=== PATIENT | female | born 1980 ===

== ENCOUNTER 2017-10-10 22:24 | Inpatient (IN) | payer BC ==
[2017-10-11] MEDS ORDERED: ACETAMINOPHEN 325 MG TAB PO
[2017-10-11] MEDS ORDERED: DOCUSATE SODIUM 100 MG CAP PO
[2017-10-11] MEDS ORDERED: BISACODYL (EC) 5 MG TAB PO
[2017-10-11] MEDS: NACL 0.9% 3 ML SYG IV (00:40)
[2017-10-11] MEDS: SOD CHLORIDE 0.9% 1,000 ML IV ×2 (00:43→12:49)
[2017-10-11] MEDS: KETOROLAC 15 MG INJ IV ×2 (00:44→06:23)
[2017-10-11 01:17] LABS: PROTIME 13.3 Sec (11.9-14.9)
[2017-10-11 01:18] LABS: PARTIAL THROMBOPLASTIN TIME 29.2 Sec (25.0-35.0)
[2017-10-11 02:02] LABS: THYROID STIMULATING HORMONE 0.361 MIU/L (0.465-4.680)
[2017-10-11 02:20] LABS: HEMOGLOBIN A1C 5.3 % (0-5.9)
[2017-10-11 05:12] LABS: ADD MAN DIFF? NO
[2017-10-11 05:20] LABS: WHITE BLOOD COUNT 6.4 10^3/ul (4.8-10.8)
[2017-10-11 05:20] LABS: BASOPHIL # 0.1 10^3/ul (0.0-0.1); BASOPHILS % 0.9 % (0.0-2.0); EOSINOPHILS # 0.2 10^3/ul (0.0-0.5); EOSINOPHILS % 2.4 % (0.0-7.0); HEMATOCRIT 36.8 % (37.0-47.0); HEMOGLOBIN 12.3 g/dl (12.0-16.0); LYMPHOCYTES # 2.8 10^3/ul (0.8-2.9); LYMPHOCYTES % 44.3 % (15.0-51.0); MEAN CORPUSCULAR HEMOGLOBIN 30.3 pg (29.0-33.0); MEAN CORPUSCULAR HGB CONC 33.4 g/dl (32.0-37.0); MEAN CORPUSCULAR VOLUME 90.6 fl (82.0-101.0); MEAN PLATELET VOLUME 9.7 fl (7.4-10.4); MONOCYTE # 0.6 10^3/ul (0.3-0.9); NEUTROPHIL # 2.7 10^3/ul (1.6-7.5); NEUTROPHILS % 42.2 % (39.0-77.0); PLATELET COUNT 293 10^3/UL (140-415); RED BLOOD COUNT 4.06 10^6/ul (4.20-5.40); RED CELL DISTRIBUTION WIDTH 13.4 % (11.5-14.5)
[2017-10-11 05:39] LABS: ALANINE AMINOTRANSFERASE 164 IU/L (13-69); ALBUMIN 3.6 g/dl (3.3-4.9); ALBUMIN/GLOBULIN RATIO 1.24; ALKALINE PHOSPHATASE 86 IU/L (42-121); ANION GAP 12 (8-16); ASPARTATE AMINO TRANSFERASE 105 IU/L (15-46); BILIRUBIN,INDIRECT 0.8 mg/dl (0-1.1); BILIRUBIN,TOTAL 0.8 mg/dl (0.2-1.3); BLOOD UREA NITROGEN 10 mg/dl (7-20); CALCIUM 9.1 mg/dl (8.4-10.2); CARBON DIOXIDE 28 mmol/L (21-31); CHLORIDE 107 mmol/L (97-110); CREATININE 1.02 mg/dl (0.44-1.00); GLUCOSE 101 mg/dl (70-220); MAGNESIUM 2.2 mg/dl (1.7-2.5); SODIUM 143 mmol/L (135-144); TOTAL PROTEIN 6.5 g/dl (6.1-8.1)
[2017-10-11] MEDS ORDERED: PIPER-TAZO 3.375 GM IV (PMX) 100 ML IVPB (06:00)
[2017-10-11] MEDS: PIPER-TAZO 3.375 GM IV (PMX) 100 ML IVPB ×4 (06:21→23:54)
[2017-10-11] MEDS: ONDANSETRON 4 MG INJ IV (06:41)
[2017-10-11] MEDS: DIPHENHYDRAMINE 50 MG INJ IV (08:48)
[2017-10-11] MEDS: HYDROmorphONE 0.5 MG/0.5 ML SYG IV (08:48)
[2017-10-11 10:08] LABS: ADD UMIC YES; UR ASCORBIC ACID NEGATIVE (NEGATIVE); UR BILIRUBIN (Dip) NEGATIVE (NEGATIVE); UR BLOOD (Dip) NEGATIVE (NEGATIVE); UR CLARITY CLEAR (CLEAR); UR COLOR AMBER (YELLOW); UR GLUCOSE (Dip) NEGATIVE (NEGATIVE); UR KETONES (Dip) NEGATIVE (NEGATIVE); UR LEUKOCYTE ESTERASE (Dip) NEGATIVE Leu/ul (NEGATIVE); UR MUCUS FEW /HPF (NONE SEEN); UR NITRITE (Dip) NEGATIVE (NEGATIVE); UR RBC 0 /HPF (0-5); UR SPECIFIC GRAVITY (Dip) 1.025 (1.003-1.030); UR SQUAMOUS EPITHELIAL CELL FEW /HPF (FEW); UR TOTAL PROTEIN (Dip) 1+ mg/dl (NEGATIVE); UR UROBILINOGEN (Dip) NEGATIVE (NEGATIVE); UR WBC 4 /HPF (0-5)
[2017-10-11 10:12] LABS: CHOL/HDL RATIO 2.9 RATIO; HDL CHOLESTEROL 43 mg/dl (34-82); LDL CHOLESTEROL,CALCULATED 72 mg/dl; TRIGLYCERIDES 48 mg/dl (0-149)
[2017-10-11 10:12] LABS: CHOLESTEROL 125 mg/dl (100-200)
[2017-10-12] MEDS: SOD CHLORIDE 0.9% 1,000 ML IV ×2 (00:53→01:27)
[2017-10-12 05:48] LABS: ADD MAN DIFF? NO
[2017-10-12 05:56] LABS: BASOPHIL # 0.1 10^3/ul (0.0-0.1); BASOPHILS % 0.9 % (0.0-2.0); EOSINOPHILS # 0.2 10^3/ul (0.0-0.5); HEMATOCRIT 35.7 % (37.0-47.0); HEMOGLOBIN 11.8 g/dl (12.0-16.0); LYMPHOCYTES # 2.7 10^3/ul (0.8-2.9); LYMPHOCYTES % 41.2 % (15.0-51.0); MEAN CORPUSCULAR HEMOGLOBIN 30.3 pg (29.0-33.0); MEAN CORPUSCULAR HGB CONC 33.1 g/dl (32.0-37.0); MEAN CORPUSCULAR VOLUME 91.5 fl (82.0-101.0); MEAN PLATELET VOLUME 9.5 fl (7.4-10.4); MONOCYTE # 0.6 10^3/ul (0.3-0.9); MONOCYTES % 9.4 % (0.0-11.0); NEUTROPHILS % 45.3 % (39.0-77.0); PLATELET COUNT 254 10^3/UL (140-415); RED CELL DISTRIBUTION WIDTH 13.5 % (11.5-14.5)
[2017-10-12 05:56] LABS: WHITE BLOOD COUNT 6.6 10^3/ul (4.8-10.8)
[2017-10-12 06:27] LABS: ALANINE AMINOTRANSFERASE 107 IU/L (13-69); ALBUMIN 3.3 g/dl (3.3-4.9); ALBUMIN/GLOBULIN RATIO 1.22; ALKALINE PHOSPHATASE 67 IU/L (42-121); ANION GAP 12 (8-16); ASPARTATE AMINO TRANSFERASE 31 IU/L (15-46); BILIRUBIN,INDIRECT 0.5 mg/dl (0-1.1); BILIRUBIN,TOTAL 0.5 mg/dl (0.2-1.3); BLOOD UREA NITROGEN 9 mg/dl (7-20); CALCIUM 8.8 mg/dl (8.4-10.2); CARBON DIOXIDE 27 mmol/L (21-31); CHLORIDE 109 mmol/L (97-110); GLUCOSE 98 mg/dl (70-220); POTASSIUM 4.5 mmol/L (3.5-5.1); SODIUM 143 mmol/L (135-144)
[2017-10-12 06:34] LABS: FREE T3 2.91 pg/ml (2.77-5.27); FREE T4 (FREE THYROXINE) 0.92 ng/dl (0.79-2.35)
[2017-10-12] MEDS: PIPER-TAZO 3.375 GM IV (PMX) 100 ML IVPB ×3 (06:36→18:18)
[2017-10-12] MEDS ORDERED: LIDOCAINE 1% (MPF) 30 ML INJ (14:21)
[2017-10-12] MEDS ORDERED: ONDANSETRON 4 MG INJ (15:03)
[2017-10-12] MEDS ORDERED: MIDAZOLAM 1 MG/ML 2 ML INJ (15:03)
[2017-10-12] MEDS ORDERED: PROPOFOL 20 ML (15:03)
[2017-10-12] MEDS ORDERED: ROPIVACAINE 0.5 % 30 ML VIAL (15:03)
[2017-10-12] MEDS ORDERED: ROCURONIUM 50 MG INJ (15:03)
[2017-10-12] MEDS ORDERED: METOCLOPRAMIDE 10 MG INJ ×2 (15:03→16:49)
[2017-10-12] MEDS ORDERED: KETOROLAC 30 MG INJ ×2 (15:03→15:08)
[2017-10-12] MEDS ORDERED: ONDANSETRON 4 MG INJ IV (15:30)
[2017-10-12] MEDS ORDERED: ACETAMINOPHEN 325 MG TAB PO (15:30)
[2017-10-12] MEDS: LIDOCAINE 1% (MPF) 30 ML INJ INJ (15:41)
[2017-10-12] MEDS: BUPIVACAINE 0.5%/EPI (SDV) 30 ML INJ (15:41)
[2017-10-12] MEDS ORDERED: NEOSTIGMINE 3 MG/3 ML SYRINGE (16:03)
[2017-10-12] MEDS ORDERED: HYDROmorphONE 2 MG/ML SYG (16:06)
[2017-10-12] MEDS: ONDANSETRON 4 MG INJ IV (16:58)
[2017-10-12] MEDS ORDERED: METOCLOPRAMIDE 10 MG INJ IV (17:00)
[2017-10-12] MEDS: KETOROLAC 15 MG INJ IV (17:04)
[2017-10-12] MEDS ORDERED: HYDROmorphONE (0.2 MG/ML) 10ML SYG IV ×2 (17:30)
[2017-10-12] MEDS ORDERED: MEPERIDINE 25 MG INJ IV (17:30)
[2017-10-12] MEDS: D5-NS + KCL 20 MEQ 1,000 ML IV (18:18)
[2017-10-12] MEDS: DIPHENHYDRAMINE 50 MG INJ IV (21:48)
[2017-10-12] MEDS: HYDROmorphONE 0.5 MG/0.5 ML SYG IV (21:55)
[2017-10-13] MEDS: PIPER-TAZO 3.375 GM IV (PMX) 100 ML IVPB ×4 (00:13→17:36)
[2017-10-13] MEDS: KETOROLAC 15 MG INJ IV ×2 (00:14→11:36)
[2017-10-13] MEDS: SOD CHLORIDE 0.9% 1,000 ML IV ×2 (01:53→14:23)
[2017-10-13] MEDS: DIPHENHYDRAMINE 50 MG INJ IV ×2 (05:02→15:42)
[2017-10-13] MEDS: HYDROmorphONE 0.5 MG/0.5 ML SYG IV ×2 (05:08→15:45)
[2017-10-13 05:57] LABS: ADD MAN DIFF? NO; BASOPHILS % 0.6 % (0.0-2.0); EOSINOPHILS % 0.6 % (0.0-7.0); HEMATOCRIT 33.2 % (37.0-47.0); HEMOGLOBIN 10.9 g/dl (12.0-16.0); LYMPHOCYTES # 2.1 10^3/ul (0.8-2.9); MEAN CORPUSCULAR HGB CONC 32.8 g/dl (32.0-37.0); MEAN CORPUSCULAR VOLUME 91.5 fl (82.0-101.0); MEAN PLATELET VOLUME 10.2 fl (7.4-10.4); MONOCYTE # 0.8 10^3/ul (0.3-0.9); MONOCYTES % 10.9 % (0.0-11.0); NEUTROPHIL # 4.1 10^3/ul (1.6-7.5); NEUTROPHILS % 57.8 % (39.0-77.0); PLATELET COUNT 230 10^3/UL (140-415); RED BLOOD COUNT 3.63 10^6/ul (4.20-5.40); RED CELL DISTRIBUTION WIDTH 13.5 % (11.5-14.5)
[2017-10-13 05:57] LABS: WHITE BLOOD COUNT 7.1 10^3/ul (4.8-10.8)
[2017-10-13] MEDS: D5-NS + KCL 20 MEQ 1,000 ML IV ×2 (06:09→11:10)
[2017-10-13] MEDS: ENOXAPARIN 40 MG/0.4 ML SYG SC (06:10)
[2017-10-13 06:51] LABS: ALANINE AMINOTRANSFERASE 108 IU/L (13-69); ALBUMIN 3.2 g/dl (3.3-4.9); ALBUMIN/GLOBULIN RATIO 1.33; ALKALINE PHOSPHATASE 78 IU/L (42-121); ANION GAP 13 (8-16); ASPARTATE AMINO TRANSFERASE 49 IU/L (15-46); BILIRUBIN,INDIRECT 0.4 mg/dl (0-1.1); BILIRUBIN,TOTAL 0.4 mg/dl (0.2-1.3); BLOOD UREA NITROGEN 6 mg/dl (7-20); CALCIUM 8.8 mg/dl (8.4-10.2); CARBON DIOXIDE 25 mmol/L (21-31); CHLORIDE 108 mmol/L (97-110); GLUCOSE 116 mg/dl (70-220); MAGNESIUM 1.8 mg/dl (1.7-2.5); SODIUM 142 mmol/L (135-144); TOTAL PROTEIN 5.6 g/dl (6.1-8.1)
[2017-10-13] MEDS: HYDROCODONE/APAP (5/325) TAB PO ×2 (10:14→14:51)
[2017-10-13] MEDS: IBUPROFEN 600 MG TAB PO (13:22)
== END 2017-10-13 19:20 | disposition home or self-care (01) | DRG 418 ==
LOC: MS1 22:24
PROVIDERS: Internal Medicine
PROC: 0FT44ZZ Resection of Gallbladder, Percutaneous Endoscopic Approach (ICD-10-PCS; principal; 2017-10-12 15:12)
DX: K80.20 Calculus of gallbladder without cholecystitis without obstruction (principal); N17.9 Acute kidney failure, unspecified; E66.9 Obesity, unspecified; Z68.32 Body mass index [BMI] 32.0-32.9, adult
CPT/HCPCS: 74181; 76705; 80053; 80061; 81001; 82962; 83036; 83735; 84439; 84443; 84481; 84703; 85025; 85610; 85730; 88304